=== PATIENT | female | born 1935 | race Caucasian/White ===

== ENCOUNTER 2018-05-27 18:14 | Observation (INO) ==
[2018-05-27] MEDS ORDERED: amLODIPine 10 MG Tablet PO ONE (19:43)
[2018-05-27] MEDS ORDERED: niCARdipine Inj 25 MG in Sodium Chlor 0.9% Inj 240 ML IV.CONT PRN (19:43)
[2018-05-27 20:27] LABS: Baso # (Auto) 0.1 th/mm3 (0.0-0.2); Baso % (Auto) 0.5 % (0.0-2.0); Eos # (Auto) 0.1 th/mm3 (0.0-0.4); Eos % (Auto) 0.5 % (0.0-4.0); Hematocrit 35.9 % (35.0-46.0); Hemoglobin 12.7 gm/dL (11.6-15.3); Lymph # (Auto) 1.9 th/mm3 (1.0-4.8); Lymph % (Auto) 16.9 % (9.0-44.0); Mean Corpuscular HGB Conc 35.4 % (32.0-36.0); Mean Corpuscular Hemoglobin 30.3 pg (27.0-34.0); Mean Corpuscular Volume 85.6 fL (80.0-100.0); Mean Platelet Volume 8.1 fL (7.0-11.0); Mono % (Auto) 9.3 % (0.0-8.0); Neut % (Auto) 72.8 % (16.0-70.0); Platelet Count 374 th/mm3 (150-450); Red Cell Distribution Width 13.5 % (11.6-17.2)
[2018-05-27 20:27] LABS: Bacteria,Urine Occasional /hpf; Bilirubin,Urine Negative (Negative); Clarity,Urine Hazy (Clear); Color,Urine Yellow (Yellw/Straw); Glucose,Urine (UA) Negative (Negative); Hyaline Casts,Urine 4 /lpf (0-3); Leukocyte Esterase,Urine Moderate (Negative); Nitrite,Urine Negative (Negative); Squamous Epithelial Cell,Urine 1 /hpf (0-5)
[2018-05-27 20:29] LABS: Amphetamine Screen,Urine Neg (Neg); Barbiturate Screen,Urine Neg (Neg); Cannabinoid Screen,Urine Neg (Neg); Cocaine Screen,Urine Neg (Neg)
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
[2018-05-27 20:35] LABS: Alanine Aminotransferase 40 U/L (10-53)
[2018-05-27 20:36] LABS: Opiate Screen,Urine Neg (Neg)
[2018-05-27 20:45] LABS: Alkaline Phosphatase 73 U/L (45-117); Thyroid Stimulating Hormone 0.016 uIU/mL (0.358-3.740); Total Protein 7.4 g/dL (6.4-8.2)
[2018-05-27 21:08] LABS: Albumin 3.8 g/dL (3.4-5.0); Anion Gap 16 meq/L (5-15); Aspartate Aminotransferase 31 U/L (15-37); Blood Urea Nitrogen 26 mg/dL (7-18); Calcium 10.6 mg/dL (8.5-10.1); Carbon Dioxide 17.2 meq/L (21.0-32.0); Chloride 104 meq/L (98-107); Glomerular Filtration Rate 21 mL/min (>89); Glucose,Random 120 mg/dL (74-106); Potassium 3.3 meq/L (3.5-5.1); Sodium 137 meq/L (136-145)
[2018-05-27 22:05] LABS: Creatine Kinase 131 U/L (26-192); Troponin I 0.03 ng/mL (0.02-0.05)
[2018-05-27 22:27] LABS: Creatine Kinase MB 2.7 ng/mL (0.5-3.6)
[2018-05-27] MEDS ORDERED: Acetaminophen 325 MG Tablet PO ONE (22:46)
[2018-05-27] MEDS ORDERED: Bisacodyl 10 MG Supp RECTAL PRN (23:18)
[2018-05-27] MEDS ORDERED: Acetaminophen 325 MG Tablet PO PRN (23:18)
[2018-05-27] MEDS ORDERED: Dextrose 50% in Water 50 ML Vial IV.PUSH PRN (23:23)
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
[2018-05-28] MEDS: Heparin - SQ 10,000 UNITS/ML Vial SQ SCH ×2 (00:33→12:00)
[2018-05-28] MEDS: Sod Chloride 0.9% Inj 1,000 ML IV.CONT SCH ×2 (01:12→15:53)
[2018-05-28 03:17] LABS: Triiodothyronine (T3) Free 2.65 pg/mL (2.18-3.98); Troponin I 0.04 ng/mL (0.02-0.05)
[2018-05-28] MEDS: Insulin NovoLOG Aspart Correctional Sugar Inj SQ SCH ×3 (04:29→12:03)
[2018-05-28 05:55] LABS: Baso # (Auto) 0.1 th/mm3 (0.0-0.2); Baso % (Auto) 0.7 % (0.0-2.0); Eos # (Auto) 0.2 th/mm3 (0.0-0.4); Eos % (Auto) 2.5 % (0.0-4.0); Hematocrit 32.3 % (35.0-46.0); Hemoglobin 11.2 gm/dL (11.6-15.3); Lymph # (Auto) 2.3 th/mm3 (1.0-4.8); Lymph % (Auto) 27.4 % (9.0-44.0); Mean Corpuscular HGB Conc 34.8 % (32.0-36.0); Mean Corpuscular Volume 86.2 fL (80.0-100.0); Mean Platelet Volume 7.4 fL (7.0-11.0); Mono # (Auto) 1.1 th/mm3 (0.0-0.9); Mono % (Auto) 13.4 % (0.0-8.0); Neut # (Auto) 4.6 th/mm3 (1.8-7.7); Platelet Count 301 th/mm3 (150-450); Red Blood Count 3.75 mil/mm3 (4.00-5.30); Red Cell Distribution Width 13.8 % (11.6-17.2); White Blood Count 8.2 th/mm3 (4.0-11.0)
[2018-05-28 06:19] LABS: Calcium 8.9 mg/dL (8.5-10.1); Carbon Dioxide 22.5 meq/L (21.0-32.0); Free T4 (Free Thyroxine) 1.61 ng/dL (0.76-1.46); Potassium 3.6 meq/L (3.5-5.1); Troponin I 0.04 ng/mL (0.02-0.05)
--- NOTE | 2018-05-28 07:43 | ECG ---
Date Performed: 05/27/2018 Time Performed: 19:33:13 PTAGE: 82 years EKG: Sinus rhythm WITH OCCASIONAL SUPRAVENTRICULAR PREMATURE COMPLEXES LEFT BUNDLE BRANCH BLOCK ABNORMAL ECG NO PREVIOUS TRACING DOCTOR: Keren Hutton Interpretating Date/Time 05/28/2018 07:41:08
[2018-05-28 08:11] VITALS: RESP 16
[2018-05-28] MEDS ORDERED: Carvedilol 6.25 MG Tablet PO SCH ×2 (09:00→21:00)
[2018-05-28] MEDS ORDERED: amLODIPine 10 MG Tablet PO SCH (09:00)
[2018-05-28] MEDS ORDERED: hydroCHLOROthiazide 25 MG Tablet PO SCH (09:00)
[2018-05-28] MEDS ORDERED: Senna/Docusate Sodium 8.6/50 MG Tablet PO SCH (09:00)
[2018-05-28] MEDS ORDERED: buPROPion 150 MG 12 HR Tablet PO SCH (09:00)
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
--- NOTE | 2018-05-28 13:14 | P.DCO ---
- Diagnosis (1) Hypertension - Home Health Nursing Order: Medical education, Signs/symptoms of disease process, Nursing assessment with vital signs - Home Health Aide Order: To assist in: ethernet network architect and meal prep - Sales Department Manager Order: To evaluate: Living conditions/environment, Support services Order: To provide: Long range planning, Community services - Case Management Consult Yes - Certification I have seen patient Maira Acuna on 05/28/18. My clinical findings support the need for the requested home health care services because: Medication compliance is questionable, Limited ability to care for self, Need for psychosocial assistance I certify that my clinical findings support that this patient is homebound because: Impaired cognitive ability/safety, Unsafe to leave home unassisted, Need for psychosocial assistance (1) Hypertension Qualifiers: Hypertension type: essential hypertension Qualified Code(s): I10 - Essential (primary) hypertension
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
[2018-05-28 16:05] VITALS: BP 147/57; PULSE 62; TEMP 98.7; O2SAT 100
[2018-05-28] MEDS ORDERED: traZODone 50 MG Tablet PO SCH (21:00)
[2018-05-29] MEDS ORDERED: Levothyroxine 150 MCG Tablet PO SCH (06:00)
== END 2018-05-28 18:01 | disposition home health service (06) ==
LOC: NEPD 18:14 → NEDA 18:14 → NEPGCP 05-28 00:38
PROVIDERS: ADMIT Hospitalist; ATTEND Hospitalist

== ENCOUNTER 2018-10-25 19:16 | Inpatient (IN) ==
[2018-10-25 20:15] LABS: Baso # (Auto) 0.1 th/mm3 (0.0-0.2); Baso % (Auto) 0.7 % (0.0-2.0); Eos # (Auto) 0.3 th/mm3 (0.0-0.4); Eos % (Auto) 2.3 % (0.0-4.0); Hematocrit 34.6 % (35.0-46.0); Hemoglobin 11.9 gm/dL (11.6-15.3); Lymph # (Auto) 2.4 th/mm3 (1.0-4.8); Lymph % (Auto) 22.4 % (9.0-44.0); Mean Corpuscular HGB Conc 34.5 % (32.0-36.0); Mean Corpuscular Hemoglobin 30.2 pg (27.0-34.0); Mean Corpuscular Volume 87.7 fL (80.0-100.0); Mono % (Auto) 9.5 % (0.0-8.0); Neut # (Auto) 7.1 th/mm3 (1.8-7.7); Neut % (Auto) 65.1 % (16.0-70.0); Platelet Count 363 th/mm3 (150-450); Red Blood Count 3.95 mil/mm3 (4.00-5.30); Red Cell Distribution Width 13.6 % (11.6-17.2); White Blood Count 10.9 th/mm3 (4.0-11.0)
[2018-10-25 20:35] LABS: Anion Gap 13 meq/L (5-15)
[2018-10-25 20:45] LABS: Alanine Aminotransferase 41 U/L (10-53); Albumin 3.8 g/dL (3.4-5.0); Alkaline Phosphatase 90 U/L (45-117); Aspartate Aminotransferase 26 U/L (15-37); Blood Urea Nitrogen 37 mg/dL (7-18); Calcium 10.3 mg/dL (8.5-10.1); Carbon Dioxide 18.1 meq/L (21.0-32.0); Chloride 108 meq/L (98-107); Glomerular Filtration Rate 27 mL/min (>89); Glucose,Random 76 mg/dL (74-106); Magnesium 1.8 mg/dL (1.5-2.5); Potassium 3.4 meq/L (3.5-5.1); Sodium 139 meq/L (136-145); Thyroid Stimulating Hormone 0.062 uIU/mL (0.358-3.740); Total Protein 7.8 g/dL (6.4-8.2)
--- NOTE | 2018-10-25 21:12 | ED ---
HPI General Chief Complaint: Psychiatric Symptoms Stated Complaint: Psych Eval/[place] [facility] Time Seen by Provider: 10/25/18 20:07 Source: patient and police Mode of arrival: other (police) Limitations: no limitations History of Present Illness HPI Narrative: Patient presents to our facility under a [place] act by law enforcement. Patient became aggressive with her daughter and made statements that she wanted to kill her children. complaint: Reports altered mental status Duration: constant History of same: No Relieving factors: none Exacerbating factors: none Context: Reports recent alcohol abuse Associated psychiatric symptoms: Reports none Associated symptoms: Reports denies other symptoms Treatments prior to arrival: Reports placed on mental health hold Related Data Home Medications Medication Instructions Recorded Confirmed amlodipine 10 mg PO DAILY 05/27/18 10/25/18 atorvastatin 80 mg PO DAILY 05/27/18 10/25/18 bupropion HCl 150 mg PO DAILY 05/27/18 10/25/18 citalopram 40 mg PO DAILY 05/27/18 10/25/18 glimepiride 2 mg PO QAM 05/27/18 10/25/18 hydrochlorothiazide 25 mg PO DAILY 05/27/18 10/25/18 trazodone 50 mg PO HS 05/27/18 10/25/18 Previous Rx's Medication Instructions Recorded carvedilol [Coreg] 6.25 mg PO BID #60 tab 05/28/18 levothyroxine [Synthroid] 150 mcg PO DAILY@0600 #30 tab 05/28/18 Allergies Allergy/AdvReac Type Severity Reaction Status Date / Time No Known Allergies Allergy Unverified 05/27/18 19:42 Review of Systems ROS: all other systems reviewed are negative [facility] Medical History Medical History Chronic kidney disease (Chronic) Depression (Chronic) Diabetes (Chronic) Heart attack (Chronic) Hypertension (Chronic) Hypothyroidism (Chronic) Surgical History Surgical History Hx of CABG (Chronic) H/O: hysterectomy (Chronic) History of appendectomy (Chronic) Family History Family History Other Diabetes mellitus Social History Social History Substance History: No History of Abuse Second Hand Smoke Exposure: No Smoking Status: Never smoker Tobacco Type: Cigarettes How Often Do You Have a Drink Containing Alcohol: Never Recent Travel in [facility] within the Last 8 Weeks: No Recent Out of Country Travel within the Last 8 Weeks: No Immunization History Tetanus Immunization: Unsure Exam HENMT Head: normocephalic and atraumatic Nose: no nasal discharge and no epistaxis Mouth: moist mucous membranes Eyes Sclera: normal sclerae Pupils: PERRL Neck Neck: trachea midline and no JVD Resp Effort & Inspection: no use of accessory muscles Auscultation: clear to auscultation bilaterally Cardio Rate: regular rate Rhythm: regular rhythm Heart Sounds: no murmurs GI Inspection: non-distended Palpation: soft, no hepatosplenomegaly and nontender Skin General: dry skin (warm) Neuro General: alert and awake Cranial Nerves: other Speech: speech normal Motor: no movement abnormalities noted Extrem General: normal to inspection, no clubbing, no cyanosis and no edema Psych Mood: congruent mood Affect: normal affect Judgment: judgment good Course Initial Documented Vital Signs Pulse Rate 71 10/25/18 19:26 Respiratory Rate 32 H 10/25/18 19:26 Blood Pressure 182/84 H 10/25/18 19:26 Pulse Oximetry 100 10/25/18 19:26 Last Documented Vital Signs Temperature 97.8 F 10/26/18 12:10 Pulse Rate 60 10/26/18 12:10 Respiratory Rate 17 10/26/18 12:10 Blood Pressure 159/70 H 10/26/18 12:10 Pulse Oximetry 99 10/26/18 09:52 Medical Decision Making MDM Narrative Medical decision making narrative: Patient presents to our facility under a [place] act by law enforcement. Patient became aggressive with her daughter and made statements that she wanted to kill her children. Lab work including a urine drug screen alcohol level and tox screen will be ordered Lab work is mostly unremarkable. Kidney function is minimally elevated with a creatinine of 1.7 his BUN 37 Drug screen is negative and alcohol is 0 Patient became belligerent and angry with staff and began slamming things into the wall and trying to slam her hands to the door. Patient was both physically and chemically restrained. Patient was given 2 mg of IM Haldol and 1 mg of IM Ativan Patient is medically cleared at 0 200 Await psychiatric evaluation in the morning Medical Screen Exam Complete: Yes Emergency Medical Condition: Yes Lab Data Lab results reviewed: Yes I reviewed the patient's lab results. Result diagrams: 10/26/18 11:10 02/16/19 11:10 Lab Results 10/25/18 10/25/18 10/25/18 Range/Units 19:40 19:40 19:40 WBC 10.9 (4.0-11.0) th/mm3 RBC 3.95 L (4.00-5.30) mil/mm3 Hgb 11.9 (11.6-15.3) gm/dL Hct 34.6 L (35.0-46.0) % MCV 87.7 (80.0-100.0) fL MCH 30.2 (27.0-34.0) pg MCHC 34.5 (32.0-36.0) % RDW 13.6 (11.6-17.2) % Plt Count 363 (150-450) th/mm3 MPV 8.0 (7.0-11.0) fL Prelim Diff (Auto) Neut % (Auto) 65.1 (16.0-70.0) % Lymph % (Auto) 22.4 (9.0-44.0) % [place] % (Auto) 9.5 H (0.0-8.0) % Eos % (Auto) 2.3 (0.0-4.0) % Baso % (Auto) 0.7 (0.0-2.0) % Neut # (Auto) 7.1 (1.8-7.7) th/mm3 Lymph # (Auto) 2.4 (1.0-4.8) th/mm3 [place] # (Auto) 1.0 H (0.0-0.9) th/mm3 Eos # (Auto) 0.3 (0.0-0.4) th/mm3 Baso # (Auto) 0.1 (0.0-0.2) th/mm3 WBC Differential . Diff Scan Differential Comment Auto diff final Sodium 139 (136-145) meq/L Potassium 3.4 L (3.5-5.1) meq/L Chloride 108 H (98-107) meq/L Carbon Dioxide 18.1 L (21.0-32.0) meq/L Anion Gap 13 (5-15) meq/L BUN 37 H (7-18) mg/dL Creatinine 1.79 H (0.50-1.00) mg/dL Estimated GFR 27 L (>89) mL/min POC Glucose (68-110) mg/dl Random Glucose 76 (74-106) mg/dL Calcium 10.3 H (8.5-10.1) mg/dL Magnesium 1.8 (1.5-2.5) mg/dL Total Bilirubin 0.6 (0.2-1.0) mg/dL AST 26 (15-37) U/L ALT 41 (10-53) U/L Alkaline Phosphatase 90 (45-117) U/L Total Protein 7.8 (6.4-8.2) g/dL Albumin 3.8 (3.4-5.0) g/dL TSH 0.062 L (0.358-3.740) uIU/mL Free T4 (0.76-1.46) ng/dL Urine Color (Yellw/Straw) Urine Clarity (Clear) Urine pH (5.0-8.5) Ur Specific [place] (1.002-1.035) Urine Protein (Neg-Trace) mg/dL Urine Glucose (UA) (Negative) mg/dL Urine Ketones (Negative) mg/dL Urine Occult Blood (Negative) Urine Nitrate (Negative) Urine Bilirubin (Negative) Urine Urobilinogen (Less than 2) mg/dL Ur Leukocyte Esterase (Negative) Urine RBC (0-3) /hpf Urine WBC (0-5) /hpf Ur Squamous Epith Cells (0-5) /hpf Ur Renal Epithelial Cell (None) /hpf Amorphous Sediment (None) /hpf Urine Bacteria (None) /hpf Hyaline Casts (0-3) /lpf Urine Mucus (Occasional) /lpf Micro UA Comment Ur Microscopic Review Urine Culture Comments Salicylates Less than 1.7 L (2.8-20.0) mg/dL Urine Opiates Screen (Neg) Acetaminophen Less than 2.0 L (10.0-30.0) mcg/mL Ur Barbiturates Screen (Neg) Ur Amphetamines Screen (Neg) U Benzodiazepines Scrn (Neg) Urine Cocaine Screen (Neg) U Cannabinoids Screen (Neg) Serum Alcohol Less than 3 (0-5) mg/dL 10/26/18 10/26/18 10/26/18 Range/Units 08:00 08:00 11:10 WBC 8.2 (4.0-11.0) th/mm3 RBC 3.79 L (4.00-5.30) mil/mm3 Hgb 11.5 L (11.6-15.3) gm/dL Hct 34.2 L (35.0-46.0) % MCV 90.2 (80.0-100.0) fL MCH 30.4 (27.0-34.0) pg MCHC 33.7 (32.0-36.0) % RDW 13.5 (11.6-17.2) % Plt Count 310 (150-450) th/mm3 MPV 7.6 (7.0-11.0) fL Prelim Diff (Auto) Slide review pending Neut % (Auto) 61.0 (16.0-70.0) % Lymph % (Auto) 23.7 (9.0-44.0) % [place] % (Auto) 9.5 H (0.0-8.0) % Eos % (Auto) 4.7 H (0.0-4.0) % Baso % (Auto) 1.1 (0.0-2.0) % Neut # (Auto) 5.0 (1.8-7.7) th/mm3 Lymph # (Auto) 1.9 (1.0-4.8) th/mm3 [place] # (Auto) 0.8 (0.0-0.9) th/mm3 Eos # (Auto) 0.4 (0.0-0.4) th/mm3 Baso # (Auto) 0.1 (0.0-0.2) th/mm3 WBC Differential . Diff Scan Auto diff confirmed Differential Comment . Sodium (136-145) meq/L Potassium (3.5-5.1) meq/L Chloride (98-107) meq/L Carbon Dioxide (21.0-32.0) meq/L Anion Gap (5-15) meq/L BUN (7-18) mg/dL Creatinine (0.50-1.00) mg/dL Estimated GFR (>89) mL/min POC Glucose (68-110) mg/dl Random Glucose (74-106) mg/dL Calcium (8.5-10.1) mg/dL Magnesium (1.5-2.5) mg/dL Total Bilirubin (0.2-1.0) mg/dL AST (15-37) U/L ALT (10-53) U/L Alkaline Phosphatase (45-117) U/L Total Protein (6.4-8.2) g/dL Albumin (3.4-5.0) g/dL TSH (0.358-3.740) uIU/mL Free T4 (0.76-1.46) ng/dL Urine Color Yellow (Yellw/Straw) Urine Clarity Cloudy H (Clear) Urine pH 5.0 (5.0-8.5) Ur Specific [place] 1.013 (1.002-1.035) Urine Protein Negative (Neg-Trace) mg/dL Urine Glucose (UA) Negative (Negative) mg/dL Urine Ketones Negative (Negative) mg/dL Urine Occult Blood Negative (Negative) Urine Nitrate Negative (Negative) Urine Bilirubin Negative (Negative) Urine Urobilinogen Less than 2 (Less than 2) mg/dL Ur Leukocyte Esterase Large H (Negative) Urine RBC 16 H (0-3) /hpf Urine WBC 109 H (0-5) /hpf Ur Squamous Epith Cells 7 (0-5) /hpf Ur Renal Epithelial Cell 1 (None) /hpf Amorphous Sediment Rare H (None) /hpf Urine Bacteria Occasional H (None) /hpf Hyaline Casts 1 (0-3) /lpf Urine Mucus Few H (Occasional) /lpf Micro UA Comment Culture indicated Ur Microscopic Review Not Reportable Urine Culture Comments Culture indicated Salicylates (2.8-20.0) mg/dL Urine Opiates Screen Neg (Neg) Acetaminophen (10.0-30.0) mcg/mL Ur Barbiturates Screen Neg (Neg) Ur Amphetamines Screen Neg (Neg) U Benzodiazepines Scrn Neg (Neg) Urine Cocaine Screen Neg (Neg) U Cannabinoids Screen Neg (Neg) Serum Alcohol (0-5) mg/dL 10/26/18 10/26/18 10/26/18 Range/Units 11:10 11:10 16:21 WBC (4.0-11.0) th/mm3 RBC (4.00-5.30) mil/mm3 Hgb (11.6-15.3) gm/dL Hct (35.0-46.0) % MCV (80.0-100.0) fL MCH (27.0-34.0) pg MCHC (32.0-36.0) % RDW (11.6-17.2) % Plt Count (150-450) th/mm3 MPV (7.0-11.0) fL Prelim Diff (Auto) Neut % (Auto) (16.0-70.0) % Lymph % (Auto) (9.0-44.0) % [place] % (Auto) (0.0-8.0) % Eos % (Auto) (0.0-4.0) % Baso % (Auto) (0.0-2.0) % Neut # (Auto) (1.8-7.7) th/mm3 Lymph # (Auto) (1.0-4.8) th/mm3 [place] # (Auto) (0.0-0.9) th/mm3 Eos # (Auto) (0.0-0.4) th/mm3 Baso # (Auto) (0.0-0.2) th/mm3 WBC Differential Diff Scan Differential Comment Sodium 140 (136-145) meq/L Potassium 3.9 (3.5-5.1) meq/L Chloride 109 H (98-107) meq/L Carbon Dioxide 22.0 (21.0-32.0) meq/L Anion Gap 9 (5-15) meq/L BUN 39 H (7-18) mg/dL Creatinine 1.84 H (0.50-1.00) mg/dL Estimated GFR 26 L (>89) mL/min POC Glucose 189 H (68-110) mg/dl Random Glucose 176 H D (74-106) mg/dL Calcium 8.9 D (8.5-10.1) mg/dL Magnesium 1.8 (1.5-2.5) mg/dL Total Bilirubin 0.3 (0.2-1.0) mg/dL AST 27 (15-37) U/L ALT 38 (10-53) U/L Alkaline Phosphatase 75 (45-117) U/L Total Protein 6.5 D (6.4-8.2) g/dL Albumin 3.0 L D (3.4-5.0) g/dL TSH 0.087 L (0.358-3.740) uIU/mL Free T4 1.11 (0.76-1.46) ng/dL Urine Color (Yellw/Straw) Urine Clarity (Clear) Urine pH (5.0-8.5) Ur Specific [place] (1.002-1.035) Urine Protein (Neg-Trace) mg/dL Urine Glucose (UA) (Negative) mg/dL Urine Ketones (Negative) mg/dL Urine Occult Blood (Negative) Urine Nitrate (Negative) Urine Bilirubin (Negative) Urine Urobilinogen (Less than 2) mg/dL Ur Leukocyte Esterase (Negative) Urine RBC (0-3) /hpf Urine WBC (0-5) /hpf Ur Squamous Epith Cells (0-5) /hpf Ur Renal Epithelial Cell (None) /hpf Amorphous Sediment (None) /hpf Urine Bacteria (None) /hpf Hyaline Casts (0-3) /lpf Urine Mucus (Occasional) /lpf Micro UA Comment Ur Microscopic Review Urine Culture Comments Salicylates (2.8-20.0) mg/dL Urine Opiates Screen (Neg) Acetaminophen (10.0-30.0) mcg/mL Ur Barbiturates Screen (Neg) Ur Amphetamines Screen (Neg) U Benzodiazepines Scrn (Neg) Urine Cocaine Screen (Neg) U Cannabinoids Screen (Neg) Serum Alcohol Less than 3 (0-5) mg/dL 10/26/18 Range/Units 20:48 WBC (4.0-11.0) th/mm3 RBC (4.00-5.30) mil/mm3 Hgb (11.6-15.3) gm/dL Hct (35.0-46.0) % MCV (80.0-100.0) fL MCH (27.0-34.0) pg MCHC (32.0-36.0) % RDW (11.6-17.2) % Plt Count (150-450) th/mm3 MPV (7.0-11.0) fL Prelim Diff (Auto) Neut % (Auto) (16.0-70.0) % Lymph % (Auto) (9.0-44.0) % [place] % (Auto) (0.0-8.0) % Eos % (Auto) (0.0-4.0) % Baso % (Auto) (0.0-2.0) % Neut # (Auto) (1.8-7.7) th/mm3 Lymph # (Auto) (1.0-4.8) th/mm3 [place] # (Auto) (0.0-0.9) th/mm3 Eos # (Auto) (0.0-0.4) th/mm3 Baso # (Auto) (0.0-0.2) th/mm3 WBC Differential Diff Scan Differential Comment Sodium (136-145) meq/L Potassium (3.5-5.1) meq/L Chloride (98-107) meq/L Carbon Dioxide (21.0-32.0) meq/L Anion Gap (5-15) meq/L BUN (7-18) mg/dL Creatinine (0.50-1.00) mg/dL Estimated GFR (>89) mL/min POC Glucose 167 H (68-110) mg/dl Random Glucose (74-106) mg/dL Calcium (8.5-10.1) mg/dL Magnesium (1.5-2.5) mg/dL Total Bilirubin (0.2-1.0) mg/dL AST (15-37) U/L ALT (10-53) U/L Alkaline Phosphatase (45-117) U/L Total Protein (6.4-8.2) g/dL Albumin (3.4-5.0) g/dL TSH (0.358-3.740) uIU/mL Free T4 (0.76-1.46) ng/dL Urine Color (Yell[place]/Straw) Urine Clarity (Clear) Urine pH (5.0-8.5) Ur Specific [place] (1.002-1.035) Urine Protein (Neg-Trace) mg/dL Urine Glucose (UA) (Negative) mg/dL Urine Ketones (Negative) mg/dL Urine Occult Blood (Negative) Urine Nitrate (Negative) Urine Bilirubin (Negative) Urine Urobilinogen (Less than 2) mg/dL Ur Leukocyte Esterase (Negative) Urine RBC (0-3) /hpf Urine WBC (0-5) /hpf Ur Squamous Epith Cells (0-5) /hpf Ur Renal Epithelial Cell (None) /hpf Amorphous Sediment (None) /hpf Urine Bacteria (None) /hpf Hyaline Casts (0-3) /lpf Urine Mucus (Occasional) /lpf Micro UA Comment Ur Microscopic Review Urine Culture Comments Salicylates (2.8-20.0) mg/dL Urine Opiates Screen (Neg) Acetaminophen (10.0-30.0) mcg/mL Ur Barbiturates Screen (Neg) Ur Amphetamines Screen (Neg) U Benzodiazepines Scrn (Neg) Urine Cocaine Screen (Neg) U Cannabinoids Screen (Neg) Serum Alcohol (0-5) mg/dL Discharge Plan Discharge Disposition Patient Disposition: ED Admit(ED Internal Use Only) Discharge Condition Condition: Stable Discharge Order Discharge Orders: ED Use Only Admit Order (Routine); Ordered 10/26/18 Ordered By: Es Sheikh Discharge Details Diagnosis: Agitation, Acute psychosis Physicians Team ED Provider: Shey Gordon ED Midlevel Provider: Jocelin Anne Primary Care Provider: Primary Care Lorraine Melendez Attending Provider: Srinivasa Coon Other Providers: Ana Bruner ; Oneil Domingo Status ED Status: Left Department Discharge Information Discharge Date/Time: 10/26/18 11:29
[2018-10-25] MEDS ORDERED: Haloperidol Inj 5 MG/ML Ampul IM ONE ×2 (23:09→23:55)
[2018-10-26] MEDS ORDERED: Acetaminophen 325 MG Tablet PO PRN (08:10)
[2018-10-26] MEDS ORDERED: Aluminum/Magnesium/Simethacone Susp 30 ML UDC PO PRN (08:10)
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
[2018-10-26] MEDS ORDERED: hydroCHLOROthiazide 25 MG Tablet PO SCH (09:00)
[2018-10-26] MEDS ORDERED: Glimepiride 2 MG Tablet PO SCH (09:00)
[2018-10-26] MEDS: Carvedilol 6.25 MG Tablet PO SCH ×2 (10:55→20:59)
[2018-10-26] MEDS: amLODIPine 10 MG Tablet PO SCH (10:56)
[2018-10-26] MEDS: buPROPion 150 MG 12 HR Tablet PO SCH (10:56)
[2018-10-26 11:20] LABS: Baso # (Auto) 0.1 th/mm3 (0.0-0.2); Baso % (Auto) 1.1 % (0.0-2.0); Eos # (Auto) 0.4 th/mm3 (0.0-0.4); Eos % (Auto) 4.7 % (0.0-4.0); Hematocrit 34.2 % (35.0-46.0); Hemoglobin 11.5 gm/dL (11.6-15.3); Lymph # (Auto) 1.9 th/mm3 (1.0-4.8); Lymph % (Auto) 23.7 % (9.0-44.0); Mean Corpuscular HGB Conc 33.7 % (32.0-36.0); Mean Corpuscular Hemoglobin 30.4 pg (27.0-34.0); Mean Corpuscular Volume 90.2 fL (80.0-100.0); Mean Platelet Volume 7.6 fL (7.0-11.0); Mono # (Auto) 0.8 th/mm3 (0.0-0.9); Mono % (Auto) 9.5 % (0.0-8.0); Platelet Count 310 th/mm3 (150-450); Red Blood Count 3.79 mil/mm3 (4.00-5.30); Red Cell Distribution Width 13.5 % (11.6-17.2); White Blood Count 8.2 th/mm3 (4.0-11.0)
[2018-10-26 11:30] LABS: Amphetamine Screen,Urine Neg (Neg); Barbiturate Screen,Urine Neg (Neg); Cannabinoid Screen,Urine Neg (Neg); Cocaine Screen,Urine Neg (Neg)
[2018-10-26 11:31] LABS: Opiate Screen,Urine Neg (Neg)
[2018-10-26 11:37] LABS: Amorphous Sediment,Urine Rare /hpf; Bacteria,Urine Occasional /hpf; Bilirubin,Urine Negative (Negative); Clarity,Urine Cloudy (Clear); Color,Urine Yellow (Yellw/Straw); Glucose,Urine (UA) Negative (Negative); Hyaline Casts,Urine 1 /lpf (0-3); Leukocyte Esterase,Urine Large (Negative); Mucus,Urine Few /lpf (Occasional); Nitrite,Urine Negative (Negative); Renal Epithelial Cells,Urine 1 /hpf; Specific Gravity,Urine 1.013 (1.002-1.035); Squamous Epithelial Cell,Urine 7 /hpf (0-5)
[2018-10-26 11:47] LABS: Alanine Aminotransferase 38 U/L (10-53); Anion Gap 9 meq/L (5-15); Aspartate Aminotransferase 27 U/L (15-37); Calcium 8.9 mg/dL (8.5-10.1); Chloride 109 meq/L (98-107); Glomerular Filtration Rate 26 mL/min (>89); Glucose,Random 176 mg/dL (74-106); Magnesium 1.8 mg/dL (1.5-2.5); Potassium 3.9 meq/L (3.5-5.1); Sodium 140 meq/L (136-145)
[2018-10-26 12:11] LABS: Alkaline Phosphatase 75 U/L (45-117); Blood Urea Nitrogen 39 mg/dL (7-18); Thyroid Stimulating Hormone 0.087 uIU/mL (0.358-3.740); Total Protein 6.5 g/dL (6.4-8.2)
[2018-10-26] MEDS ORDERED: Dextrose 50% in Water 50 ML Vial IV.PUSH PRN (15:15)
[2018-10-26] MEDS ORDERED: Bisacodyl 10 MG Supp RECTAL PRN (16:16)
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
[2018-10-26] MEDS: Insulin NovoLOG Aspart Correctional Sugar Inj SQ SCH ×2 (17:09→21:00)
[2018-10-26] MEDS: Senna/Docusate Sodium 8.6/50 MG Tablet PO SCH (20:59)
[2018-10-27] MEDS: Levothyroxine 150 MCG Tablet PO SCH (05:49)
[2018-10-27] MEDS: Insulin NovoLOG Aspart Correctional Sugar Inj SQ SCH ×4 (06:59→21:21)
[2018-10-27] MEDS: Carvedilol 6.25 MG Tablet PO SCH ×2 (08:37→21:17)
[2018-10-27] MEDS: amLODIPine 10 MG Tablet PO SCH (08:37)
[2018-10-27] MEDS: buPROPion 150 MG 12 HR Tablet PO SCH (08:37)
[2018-10-27] MEDS: Senna/Docusate Sodium 8.6/50 MG Tablet PO SCH ×2 (08:37→21:17)
--- NOTE | 2018-10-27 12:48 | P.PNPSY ---
Subjective Remarks: This is a request for second opinion. Admission note was reviewed and I agree with the history. Patient was seen and case was discussed with nursing. Patient is pleasant and cooperative with exam. She is alert and oriented x2. She has no recollection of the argument or her actions that led to her admission. So far, she has been denies agitated and behaving well on the unit. Patient denies auditory or visual hallucinations. Review of Systems All other systems reviewed negative except as stated in HPI Mental Status Examination Appearance: Appropriate Consciousness: Alert Orientation: Person, Place Motor Activity: Other (Not tested) Speech: Unremarkable Language: Adequate Fund of Knowledge: Inadequate Attention and Concentration: Easily distracted Memory: Impaired Mood: Other (Euthymic at this time the patient medicated with Haldol and Ativan yesterday evening) Affect: Other (Slight decreased range and intensity) Thought Process & Associations: Intact Thought Content: Other Hallucination Type: None (Denies) Delusion Type: None Suicidal Ideation: No (Denies) Suicidal Plan: No (Denies) Suicidal Intention: No (Denies) Homicidal Ideation: No Homicidal Plan: No Homicidal Intention: No Insight: Poor Judgment: Poor Assessment and Plan - Assessment (1) Dementia in other diseases classified elsewhere with behavioral disturbance Code(s): F02.81 - Dementia in other diseases classified elsewhere with behavioral disturbance Status: Acute (2) Alzheimer's disease with late onset Code(s): G30.1 - Alzheimer's disease with late onset; F02.80 - Dementia in other diseases classified elsewhere without behavioral disturbance Status: Acute - Plan Plan: I agree with the first opinion to continue petition. Criteria include agitation at home and confusion Justification for Continued Inpatient Stay: Patient would decompensate in a less restrictive setting Request Healthcare Surrogate/Guardian Advocate?: Yes
--- NOTE | 2018-10-27 14:32 | P.PNIM ---
Subjective Interval history: Follow up on patient with dementia, CVA, HTN, CKD. Patient seen and examined. Patient denies any acute medical complaints or concerns. She says she feels well. She denies any fever or chills. She denies any headache, dizziness, lightheadedness, N/V, dyspnea, chest pain or abdominal pain. She denies any urinary complaints. She says she is hungry and is asking for a snack. DW psych nurse and no acute medical issues noted. Physical Exam Vital signs: Vital Signs 10/27/18 05:37 Temperature 97.4 F L Pulse Rate 59 L Respiratory Rate 16 Blood Pressure 137/64 Pulse Oximetry 99 Intake & Output 10/26/18 10/27/18 10/27/18 18:59 06:59 18:59 Intake Total 600 / 600 360 / 360 Balance 600 / 600 360 / 360 Weight 60.2 kg Intake: Oral 600 / 600 360 / 360 Other: Date of Last Bowel Movement 10/26/18 Weight On Admission 60.2 kg Narrative: GENERAL: Well-nourished well-developed pleasant elderly female, INAD. Awake and alert. Ambulating around the 2600 unit without any difficulties. SKIN: Warm and dry. HEENT: Atraumatic. Normocephalic. Pupils equal and round. No scleral icterus. No nasal discharge. Mucous membranes pink and moist. NECK: Trachea midline. CARDIOVASCULAR: Regular rate and rhythm. +2/6 systolic ejection murmur. RESPIRATORY: No accessory muscle use. Clear to auscultation. Breath sounds equal bilaterally. GASTROINTESTINAL: Abdomen soft, non-tender, nondistended. Normoactive bowel sounds MUSCULOSKELETAL: Extremities without clubbing, cyanosis, or edema. No obvious deformities. NEUROLOGICAL: Awake and alert. Partially oriented. No obvious cranial nerve deficits. Motor grossly within normal limits.Normal speech. PSYCHIATRIC: Calm and cooperative. Results Labs CBC & Chem 7: 10/26/18 11:10 10/26/18 11:10 Labs: Microbiology 10/26/18 08:00 Clean Catch Urine Urine Culture - Final >100,000 cfu/mL mixed gram positive meenu (probable contaminantes) Assessment and Plan (1) Dementia in other diseases classified elsewhere with behavioral disturbance : Code(s): F02.81 - Dementia in other diseases classified elsewhere with behavioral disturbance Status: Acute (2) Alzheimer's disease with late onset: Code(s): G30.1 - Alzheimer's disease with late onset; F02.80 - Dementia in other diseases classified elsewhere without behavioral disturbance Status: Acute Plan 83yo female with known dementia admitted under Morgan Act for behavioral disturbance: Dementia with behavioral disturbance -management per psychiatric team Hypertension, chronic -Continue on Coreg and Norvasc -continue to monitor BP and adjust tx accordingly DM, type II -BS overall controlled -would not resume glimepiride this admission -accuchek and ISS Hypothyroidism -low TSH but T4 WNL -Continue Levothyroxine at current dose -recommend repeat thyroid studies in 3-4 weeks as outpatient with PCP CKD stage IV -creatinine appears to be at baseline -avoid nephrotoxic agents -monitor kidney function as indicated Hx of CVA CAD HLD -statin daily -consider starting low dose ASA daily Bacteruria patient is asymptomatic -UA suggestive of UTI but UCX + gram + meenu, likely contaminants -no indication for antibiotic therapy Constipation, chronic -bowel program DVT prophylaxis -patient is ambulatory Patient appears stable from hospitalist standpoint. [facility] will sign off. Please reconsult if needed. Code Status: FULL Discussed Condition With: patient, nursing staff, Dr. Damon Progress Note: Quality VTE Deep Vein Thrombosis/Pulmonary Embolism Present on Admission: No _ (1) Alzheimer's disease with late onset Qualifiers: Dementia behavioral disturbance:
[2018-10-27 18:36] VITALS: TEMP 97.6
[2018-10-28] MEDS: Levothyroxine 150 MCG Tablet PO SCH (05:40)
[2018-10-28 06:00] VITALS: BP 141/68; PULSE 53; RESP 16; O2SAT 96
[2018-10-28] MEDS: Insulin NovoLOG Aspart Correctional Sugar Inj SQ SCH ×2 (09:07→12:48)
[2018-10-28] MEDS: Carvedilol 6.25 MG Tablet PO SCH (09:08)
[2018-10-28] MEDS: buPROPion 150 MG 12 HR Tablet PO SCH (09:08)
[2018-10-28] MEDS: amLODIPine 10 MG Tablet PO SCH (09:08)
[2018-10-28] MEDS: Senna/Docusate Sodium 8.6/50 MG Tablet PO SCH (09:11)
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
== END 2018-10-28 15:40 | disposition home or self-care (01) | DRG 57 ==
LOC: NEDAMB 19:16 → NEDA 10-26 09:58 → H260 10-26 11:26
PROVIDERS: ADMIT Psychiatry & Neurology Psychiatry; ATTEND Psychiatry & Neurology Psychiatry
DX: I25.2 Old myocardial infarction; E03.9 Hypothyroidism, unspecified; G30.1 Alzheimer's disease with late onset; E78.5 Hyperlipidemia, unspecified; I25.10 Atherosclerotic heart disease of native coronary artery without angina pectoris; I12.9 Hypertensive chronic kidney disease with stage 1 through stage 4 chronic kidney disease, or unspecified chronic kidney disease; Z95.1 Presence of aortocoronary bypass graft; Z87.891 Personal history of nicotine dependence; N18.4 Chronic kidney disease, stage 4 (severe); F02.81 Dementia in other diseases classified elsewhere, unspecified severity, with behavioral disturbance; K59.00 Constipation, unspecified; Z79.84 Long term (current) use of oral hypoglycemic drugs; E11.22 Type 2 diabetes mellitus with diabetic chronic kidney disease; Z86.73 Personal history of transient ischemic attack (TIA), and cerebral infarction without residual deficits; R82.71 Bacteriuria
CPT/HCPCS: 80053; 80307; 81001; 82948; 82962; 83735; 84439; 84443; 85025; 87086; 90774; 90775; 90784; 90791; 96374; 96375; 97161; 99285; C8952; J1630; J1815; J2060